=== PATIENT | male | born 1995 | race Two or more races ===

== ENCOUNTER 2024-01-20 15:22 | Emergency (ER) | payer SELFPAY ==
[~2024-01-20] VITALS: Ht 177.8 cm; Wt 93.6 kg
[2024-01-20 16:37] VITALS: BP 111/71; PULSE 82; RESP 15; TEMP 98.5; O2SAT 97
== END 2024-01-20 16:45 | disposition home or self-care (01) ==
LOC: ER 15:22
DX: T14.8XXD Other injury of unspecified body region, subsequent encounter (principal); X58.XXXD Exposure to other specified factors, subsequent encounter